=== PATIENT | male | born 1980 | race African-American/Black ===

== ENCOUNTER 2018-10-29 14:28 | Inpatient (IN) | payer OTHER ==
[~2018-10-29] VITALS: Ht 167.6 cm; Wt 91.3 kg
[2018-10-29] MEDS ORDERED: MORPHINE SULFATE 4 MG/1ML SYG ONE ×3 (14:39→22:12)
[2018-10-29] MEDS ORDERED: ONDANSETRON HCL 4 MG/2 ML VIAL ONE (14:39)
[2018-10-29] MEDS ORDERED: KETOROLAC TROMETHAMINE 30MG/ML ONE (15:08)
[2018-10-29 16:28] LABS: BASOPHILS % (AUTO) 0.7 % (0.0-5.0); EOSINOPHILS % (AUTO) 0.6 % (0.0-8.0); HEMATOCRIT 46.1 % (42-54); LYMPHOCYTES % (AUTO) 18.2 % (21.0-51.0); MEAN CORPUSCULAR HEMOGLOBIN 32.1 pg (27.0-33.0); MEAN CORPUSCULAR HGB CONC 33.9 g/dL (32.0-36.0); MEAN CORPUSCULAR VOLUME 94.8 fL (79-99); MONOCYTES % (AUTO) 6.8 % (3.0-13.0); NEUTROPHILS % (AUTO) 73.7 % (40.0-77.0); NUCLEATED RED BLOOD CELLS 0.1 % (0.0-0.19); PLATELET COUNT (AUTO) 246 K/uL (130-400); RED BLOOD CELL COUNT(AUTO) 4.86 MIL/uL (4.50-6.20); RED CELL DISTRIBUTION WIDTH 12.7 % (11.0-15.5); WHITE BLOOD COUNT (AUTO) 10.9 K/uL (4.8-10.8)
[2018-10-29 16:43] LABS: INR 0.95 (0.85-1.15); PARTIAL THROMBOPLASTIN TIME 28.7 SEC (26.3-35.5)
[2018-10-29 17:57] LABS: APPEARANCE,URINE CLEAR (CLEAR); BILIRUBIN,URINE NEGATIVE (NEGATIVE); COLOR,URINE YELLOW (YELLOW); GLUCOSE, URINE (UA) NEGATIVE (NEGATIVE); KETONES,URINE 5 mg/dL (NEGATIVE); LEUKOCYTE ESTERASE ,URINE NEGATIVE (NEGATIVE); NITRATE,URINE NEGATIVE (NEGATIVE); OCCULT BLOOD,URINE SMALL (NEGATIVE); PH,URINE 6.5 (5.0-8.0); PROTEIN,URINE TRACE mg/dL (NEGATIVE); UROBILINOGEN,URINE 0.2 mg/dL (0.2-1.0)
[2018-10-29] MEDS ORDERED: MORPHINE SULFATE 4 MG/1ML SYG IV PRN (18:00)
[2018-10-29] MEDS ORDERED: LACTULOSE 20 GM/30 ML UDCUP PO PRN (18:00)
[2018-10-29] MEDS ORDERED: ONDANSETRON HCL 4 MG/2 ML VIAL IV PRN (18:00)
[2018-10-29] MEDS ORDERED: ACETAMINOPHEN 325 MG TAB PO PRN ×2 (18:00)
[2018-10-29] MEDS ORDERED: MORPHINE SULFATE 2 MG/ML 1ML SYG IV PRN (18:00)
[2018-10-29 18:33] LABS: BACTERIA,URINE Rare /HPF (None Seen); MUCUS,URINE Few LPF (None Seen); RBC,URINE 0-1 /HPF (0-1); SQUAMOUS EPITHELIAL CELL,UR Rare /HPF (0-2); WBC,URINE 0-1 /HPF (0-1)
--- NOTE | 2018-10-29 23:45 | NUR ---
admit PATIENT ARRIVED TO ROOM IN WHEEL CHAIR WITH LEFT ARM IN SPLINT AND SLING. SOME SWELLING NOTED TO LEFT ARM BUT STRONG RADIAL PULSES PRESENT AND PATIENT ABLE TO MOVE ALL DIGITS. PATIENT ORIENTED TO ROOM.
[2018-10-29 23:48] VITALS: BP 138/105
[2018-10-30] VITALS (22 sets, daily range): BP systolic 118–154; BP diastolic 67–101
[2018-10-30 00:30] LABS: ALBUMIN 3.2 g/dL (3.5-5.0); BILIRUBIN,TOTAL 0.5 mg/dL (0.2-1.0); CREATININE 1.4 mg/dL (0.5-1.5); POTASSIUM 3.4 mmol/L (3.5-5.1); TOTAL PROTEIN, SERUM 6.9 g/dL (6.0-8.3)
[2018-10-30] MEDS ORDERED: ABAC1TAB15 PO (00:31)
[2018-10-30] MEDS ORDERED: ALBU8.5H8 IH (00:31)
[2018-10-30] MEDS: SODIUM CHLORIDE 0.9% 1000ML 1,000 ML IV SCH ×5 (00:34→23:37)
[2018-10-30] MEDS ORDERED: KETOROLAC TROMETHAMINE 30MG/ML ONE (00:50)
--- NOTE | 2018-10-30 02:00 | NUR ---
NUMBNESS PATIENT COMPLAINS OF NUMBNESS AND SWELLING TO LEFT ARM. DR STANLEY PAGED TO INFORM OF PATIENT STATUS. Sharlene CHERRY COMBINED RAIL OPERATOR NOTIFIED [place] TO FOLLOW ORTHOPEDIC RECOMMENDATIONS AND CHECK NEUROVASCULAR SIGNS.
[2018-10-30 04:35] LABS: ALBUMIN 3.3 g/dL (3.5-5.0); BILIRUBIN,TOTAL 0.7 mg/dL (0.2-1.0); CREATININE 1.4 mg/dL (0.5-1.5); POTASSIUM 3.9 mmol/L (3.5-5.1)
[2018-10-30 04:39] LABS: HEMATOCRIT 43.7 % (42-54); MEAN CORPUSCULAR HEMOGLOBIN 32.7 pg (27.0-33.0); MEAN CORPUSCULAR VOLUME 96.1 fL (79-99); PLATELET COUNT (AUTO) 212 K/uL (130-400); RED BLOOD CELL COUNT(AUTO) 4.55 MIL/uL (4.50-6.20); WHITE BLOOD COUNT (AUTO) 10.7 K/uL (4.8-10.8)
[2018-10-30] MEDS: KETOROLAC TROMETHAMINE 15MG/ML IM PRN ×2 (08:51→15:05)
[2018-10-30] MEDS ORDERED: CEFAZOLIN SODIUM 1 GM VIAL IVP PRN (09:45)
[2018-10-30] MEDS ORDERED: HYDROMORPHONE HCL 2 MG/ML VIAL IVP PRN (09:45)
[2018-10-30] MEDS ORDERED: LACTATED RINGERS 1000ML 1,000 ML IV ONE (09:55)
[2018-10-30] MEDS ORDERED: PROPOFOL 10 MG/ML 20ML VIAL IV ONE (10:08)
[2018-10-30] MEDS ORDERED: FENTANYL CITRATE PF 50 MCG/1 ML 2ML VIAL ONE ×4 (10:08→12:47)
[2018-10-30] MEDS ORDERED: LIDOCAINE HCL MPF 1% 5ML VIAL ONE (10:08)
--- NOTE | 2018-10-30 10:30 | NUR ---
DC Plan Attempted to meet with patient to discuss dc plan. Patient currently not in room. CM to revisit. CD
[2018-10-30] MEDS ORDERED: ONDANSETRON HCL 4 MG/2 ML VIAL ONE (12:09)
[2018-10-30] MEDS ORDERED: MEPERIDINE-PF 25 MG/ML SYG ONE (12:33)
[2018-10-30] MEDS ORDERED: METOCLOPRAMIDE 10 MG/2 ML VIAL ONE (12:55)
[2018-10-30] MEDS ORDERED: LIDOCAINE HCL-MPF 1% 2ML VIAL IVP PRN (14:30)
[2018-10-30] MEDS ORDERED: DiphenhydrAMINE HCL 50 MG/ML VIAL IVP PRN (14:30)
[2018-10-30] MEDS ORDERED: CALCIUM CARBONATE 500 MG TABLET PO PRN (14:30)
[2018-10-30] MEDS ORDERED: TRAMADOL HCL 50 MG TABLET PO PRN (14:30)
[2018-10-30] MEDS ORDERED: POTASSIUM CHLORIDE 20MEQ/100ML 100 ML IV PRN (14:30)
[2018-10-30] MEDS ORDERED: OXYCODONE HCL 5 MG TAB PO PRN (14:30)
[2018-10-30] MEDS ORDERED: DIPHENHYDRAMINE HCL 25 MG CAPSULE PO PRN (14:30)
[2018-10-30] MEDS ORDERED: POTASSIUM CHLORIDE 20 MEQ ERTAB PO PRN (14:30)
[2018-10-30] MEDS ORDERED: FERROUS FUMARATE 324 MG TABLET PO PRN (14:30)
[2018-10-30] MEDS ORDERED: POTASSIUM CHLORIDE 10% ELIXIR 20 MEQ/15 ML UDCUP PO PRN (14:30)
[2018-10-30] MEDS: ACETAMINOPHEN EXTRA STRENGTH 500 MG TABLET PO SCH ×2 (15:05→20:28)
[2018-10-30] MEDS: HYDROCODONE/ACETAMINOPHEN 5/325 MG TAB PO PRN ×2 (16:24→20:28)
[2018-10-30] MEDS: CEFAZOLIN 3GM /D5W 100ML 100 ML IV SCH (20:28)
[2018-10-31] MEDS ORDERED: HYDROMORPHONE HCL 2 MG/ML VIAL ONE (00:02)
[2018-10-31] MEDS: CEFAZOLIN 3GM /D5W 100ML 100 ML IV SCH (03:45)
[2018-10-31] MEDS ORDERED: HYDROMORPHONE 1 MG/1 ML AMP ONE (03:47)
[2018-10-31] MEDS: ACETAMINOPHEN EXTRA STRENGTH 500 MG TABLET PO SCH ×3 (03:50→22:28)
[2018-10-31 04:00] VITALS: BP 148/84
[2018-10-31 05:04] LABS: BASOPHILS % (AUTO) 0.6 % (0.0-5.0); EOSINOPHILS % (AUTO) 2.3 % (0.0-8.0); HEMATOCRIT 39.4 % (42-54); LYMPHOCYTES % (AUTO) 29.4 % (21.0-51.0); MEAN CORPUSCULAR HEMOGLOBIN 31.9 pg (27.0-33.0); MEAN CORPUSCULAR HGB CONC 33.6 g/dL (32.0-36.0); MEAN CORPUSCULAR VOLUME 95.1 fL (79-99); MONOCYTES % (AUTO) 10.8 % (3.0-13.0); NEUTROPHILS % (AUTO) 56.9 % (40.0-77.0); NUCLEATED RED BLOOD CELLS 0.1 % (0.0-0.19); PLATELET COUNT (AUTO) 222 K/uL (130-400); RED BLOOD CELL COUNT(AUTO) 4.14 MIL/uL (4.50-6.20); RED CELL DISTRIBUTION WIDTH 12.8 % (11.0-15.5)
[2018-10-31 05:14] LABS: INR 0.96 (0.85-1.15); PROTHROMBIN TIME 10.1 SEC (9.6-11.6)
[2018-10-31 05:22] LABS: CREATININE 1.3 mg/dL (0.5-1.5); POTASSIUM 3.6 mmol/L (3.5-5.1)
[2018-10-31 08:00] VITALS: BP 167/93
[2018-10-31] MEDS: POLYETHYLENE GLYCOL 3350 17 GM POWD.PACK PO SCH (08:57)
[2018-10-31 11:00] VITALS: BP 171/95
[2018-10-31] MEDS: PSYLLIUM SEED 1 EACH PACKET PO SCH (11:54)
[2018-10-31] MEDS: HYDRALAZINE HCL 20 MG/ML VIAL IV PRN (11:55)
[2018-10-31] MEDS: SODIUM CHLORIDE 0.9% 1000ML 1,000 ML IV SCH ×2 (12:02→15:45)
[2018-10-31] MEDS: HYDROMORPHONE HCL 2 MG/ML VIAL IVP PRN ×3 (13:13→21:54)
--- NOTE | 2018-10-31 13:57 | NUR ---
DC PLAN VISITED WITH PATIENT. PATIENT LIVES ALONE. INDEPENDENT ABLE TO PERFORM ADL'S. PATIENT HAS NO SERVICES OR DME'S. FEELS SAFE TO RETURN HOME. RECEIVED PACKET FOR MD TO SIGN. EXPLAINED TO PATIENT THAT TYPICALLY MD IN HOSPITAL DOES NOT SIGN INFORMATION. THEY SEND PATIENT TO [facility] TO FILL PAPERWORK. SINCE IT ASK ABOUT WHEN OKAY TO RETURN TO WORK. PER PATIENT IT IS TO BE FILLED HERE. LEFT FLAGGED IN CHART. LET NURSE KNOW TO SEE IF MD WILL SIGN FORMS. Addendum: 10/31/18 at 1400 by MARGE MARI RN CM Amended: Links added.
[2018-10-31 16:00] VITALS: BP 181/89
[2018-10-31 19:30] VITALS: BP 138/88
[2018-10-31 23:32] VITALS: BP 155/84
[2018-11-01] MEDS: HYDROMORPHONE HCL 2 MG/ML VIAL IVP PRN ×5 (01:24→20:47)
[2018-11-01 04:00] VITALS: BP 148/93
[2018-11-01 04:28] LABS: BASOPHILS % (AUTO) 0.8 % (0.0-5.0); EOSINOPHILS % (AUTO) 1.5 % (0.0-8.0); HEMATOCRIT 42.4 % (42-54); LYMPHOCYTES % (AUTO) 26.1 % (21.0-51.0); MEAN CORPUSCULAR HEMOGLOBIN 32.8 pg (27.0-33.0); MEAN CORPUSCULAR HGB CONC 34.5 g/dL (32.0-36.0); MEAN CORPUSCULAR VOLUME 95.2 fL (79-99); MONOCYTES % (AUTO) 11.7 % (3.0-13.0); NEUTROPHILS % (AUTO) 59.9 % (40.0-77.0); PLATELET COUNT (AUTO) 217 K/uL (130-400); RED BLOOD CELL COUNT(AUTO) 4.45 MIL/uL (4.50-6.20); WHITE BLOOD COUNT (AUTO) 10.2 K/uL (4.8-10.8)
[2018-11-01 04:33] LABS: INR 0.97 (0.85-1.15); PROTHROMBIN TIME 10.2 SEC (9.6-11.6)
[2018-11-01 04:50] LABS: CREATININE 1.4 mg/dL (0.5-1.5); POTASSIUM 3.7 mmol/L (3.5-5.1)
[2018-11-01] MEDS: SODIUM CHLORIDE 0.9% 1000ML 1,000 ML IV SCH (05:05)
[2018-11-01] MEDS: ACETAMINOPHEN EXTRA STRENGTH 500 MG TABLET PO SCH ×3 (05:09→23:30)
[2018-11-01] MEDS: HYDROCODONE/ACETAMINOPHEN 5/325 MG TAB PO PRN ×2 (07:50→13:05)
[2018-11-01] MEDS: POLYETHYLENE GLYCOL 3350 17 GM POWD.PACK PO SCH (07:51)
[2018-11-01 08:00] VITALS: BP 146/96
[2018-11-01 11:00] VITALS: BP 148/92
[2018-11-01] MEDS: PSYLLIUM SEED 1 EACH PACKET PO SCH (13:00)
[2018-11-01] MEDS ORDERED: BISACODYL 5 MG TABLET.DR PO PRN (14:30)
--- NOTE | 2018-11-01 15:00 | NUR ---
DRESSING CHANGE TO LEFT ARM INCISION PER MD ORDERS. DORSAL INCISION 8CM X 2.27 CM X 0.5 CM, BEEFY RED TISSUE. MODERATE AMOUNT OF BLEEDING NOTED. PACKED WITH STERILE WET TO DRY 4X4 ORDERED. COVERED WITH KERLIX, REPLACED SPLINT, SECURED WITH JOHNNIE WRAP. EXTREMITY ELEVATED ON 2 PILLOWS. PT TOLERATED WELL.
[2018-11-01 16:00] VITALS: BP 145/94
[2018-11-01 19:06] VITALS: BP 157/99
[2018-11-01 23:34] VITALS: BP 146/94
[2018-11-02 03:40] VITALS: BP 152/98
[2018-11-02 04:08] LABS: BASOPHILS % (AUTO) 0.7 % (0.0-5.0); EOSINOPHILS % (AUTO) 2.5 % (0.0-8.0); LYMPHOCYTES % (AUTO) 34.2 % (21.0-51.0); MEAN CORPUSCULAR HEMOGLOBIN 32.2 pg (27.0-33.0); MEAN CORPUSCULAR HGB CONC 33.6 g/dL (32.0-36.0); MEAN CORPUSCULAR VOLUME 95.7 fL (79-99); MONOCYTES % (AUTO) 11.3 % (3.0-13.0); NEUTROPHILS % (AUTO) 51.3 % (40.0-77.0); PLATELET COUNT (AUTO) 260 K/uL (130-400); RED BLOOD CELL COUNT(AUTO) 4.49 MIL/uL (4.50-6.20); RED CELL DISTRIBUTION WIDTH 13.1 % (11.0-15.5); WHITE BLOOD COUNT (AUTO) 10.7 K/uL (4.8-10.8)
[2018-11-02] MEDS: HYDRALAZINE HCL 20 MG/ML VIAL IV PRN (04:12)
[2018-11-02 04:19] LABS: INR 0.94 (0.85-1.15); PROTHROMBIN TIME 9.9 SEC (9.6-11.6)
[2018-11-02 04:44] LABS: CREATININE 1.2 mg/dL (0.5-1.5)
[2018-11-02] MEDS: ACETAMINOPHEN EXTRA STRENGTH 500 MG TABLET PO SCH ×3 (06:42→21:33)
[2018-11-02] MEDS: SODIUM CHLORIDE 0.9% 1000ML 1,000 ML IV SCH ×3 (06:50→16:48)
[2018-11-02 08:00] VITALS: BP 145/89
[2018-11-02] MEDS: POLYETHYLENE GLYCOL 3350 17 GM POWD.PACK PO SCH (08:56)
[2018-11-02] MEDS ORDERED: KETOROLAC TROMETHAMINE 15MG/ML IV PRN (09:15)
[2018-11-02] MEDS ORDERED: HYDROCODONE/ACETAMINOPHEN 5/325 MG TAB PO PRN (11:15)
[2018-11-02 11:53] VITALS: BP 143/97
[2018-11-02] MEDS: PSYLLIUM SEED 1 EACH PACKET PO SCH (11:59)
[2018-11-02] MEDS: HYDROCODONE/ACETAMINOPHEN 5/325 MG TAB PO PRN (12:00)
[2018-11-02] MEDS ORDERED: BISACODYL 10 MG SUPP.RECT RC PRN (14:30)
[2018-11-02 16:00] VITALS: BP 144/91
[2018-11-02] MEDS ORDERED: KETOROLAC TROMETHAMINE 15MG/ML IM PRN (16:00)
[2018-11-02] MEDS: HYDROMORPHONE HCL 2 MG/ML VIAL IVP PRN (16:41)
--- NOTE | 2018-11-02 17:45 | NUR ---
Pt's diastolic blood pressures have been in 90's this shift, but he refuses hydralazine. Stated he feels "terrible: after administration on hydralazine this morning and he will "never do that again." Attempted to contact LOLA Jones to report, no call back yet.
--- NOTE | 2018-11-02 17:45 | NUR ---
STERILE DRESSING CHANGE TO LEFT DORSAL INCISION WITH WET TO DRY PACKING. BEEFY RED GRANULATION NOTED; MODERATE AMT BLEEDING. SECURED WITH KERLIX, SPLINT, AND JOHNNIE WRAP AFTER LIGHT WET TO DRY PACKING. PT TOLERATED WELL.
[2018-11-02 19:30] VITALS: BP 163/95
--- NOTE | 2018-11-02 20:07 | NUR ---
NOTE CONTACTED Juan Miguel MIJARES REGARDING BP 163/95 TONIGHT. ALSO NOTIFIED HIM THAT I WAS INFORMED IN SHIFT REPORT PATIENT DOES NOT WANT TO RECEIVE HYDRALAZINE ANYMORE DUE TO HOW IT MADE HIM FEEL. Juan Miguel REGAN SAID HE WOULD GO TALK TO HIM AND PLACE ORDERS.
--- NOTE | 2018-11-02 21:30 | NUR ---
NOTE ASKED HIM IF Juan Miguel MIJARES SPOKE TO HIM REGARDING NEW MEDICATIONS. HE SAID YES. BROUGHT CLONIDINE AND EXPLAINED PURPOSE TO PATIENT. HE REQUESTED INFORMATION AND SIDE EFFECTS. PRINTED INFORMATION SHEET FOR CLONIDINE AND ALSO FOR [place] FOR HIM TO REVIEW. UPON REVIEWING THE INFORMATION HE SAID HE WAS NOT GOING TO TAKE THE MEDICATION. STATED "I HAVE NEVER HAD A PROBLEM WITH BLOOD PRESSURE AND I'M NOT GOING TO TAKE MEDICATION FOR JUST ONE OCCURRENCE".
[2018-11-02] MEDS: CLONIDINE HCL 0.1 MG TABLET PO PRN (21:37)
[2018-11-02 23:26] VITALS: BP 148/96
[2018-11-03 03:00] VITALS: BP 137/93
[2018-11-03] MEDS: SODIUM CHLORIDE 0.9% 1000ML 1,000 ML IV SCH ×3 (03:06→22:56)
[2018-11-03] MEDS: HYDROMORPHONE HCL 2 MG/ML VIAL IVP PRN ×4 (03:14→23:26)
[2018-11-03 04:30] LABS: BASOPHILS % (AUTO) 0.8 % (0.0-5.0); EOSINOPHILS % (AUTO) 3.8 % (0.0-8.0); HEMATOCRIT 39.1 % (42-54); LYMPHOCYTES % (AUTO) 36.8 % (21.0-51.0); MEAN CORPUSCULAR HEMOGLOBIN 32.8 pg (27.0-33.0); MEAN CORPUSCULAR HGB CONC 34.3 g/dL (32.0-36.0); MEAN CORPUSCULAR VOLUME 95.7 fL (79-99); MONOCYTES % (AUTO) 9.8 % (3.0-13.0); NEUTROPHILS % (AUTO) 48.8 % (40.0-77.0); PLATELET COUNT (AUTO) 226 K/uL (130-400); RED BLOOD CELL COUNT(AUTO) 4.09 MIL/uL (4.50-6.20); RED CELL DISTRIBUTION WIDTH 12.7 % (11.0-15.5); WHITE BLOOD COUNT (AUTO) 8.3 K/uL (4.8-10.8)
[2018-11-03] MEDS: ACETAMINOPHEN EXTRA STRENGTH 500 MG TABLET PO SCH ×3 (06:52→21:51)
[2018-11-03 08:00] VITALS: BP 144/95
[2018-11-03] MEDS: LOSARTAN 100 MG TABLET PO SCH (09:00)
[2018-11-03] MEDS: POLYETHYLENE GLYCOL 3350 17 GM POWD.PACK PO SCH (09:18)
[2018-11-03] MEDS: PSYLLIUM SEED 1 EACH PACKET PO SCH (11:14)
[2018-11-03 11:43] VITALS: BP 148/92
--- NOTE | 2018-11-03 13:30 | NUR ---
REC'D CALL FROM DR STANLEY STATING THAT HE FEELS TOMORROW (SUNDAY) IS TOO EARLY TO SCHEDULE LEFT ARM WOUND CLOSURE; HE WILL REASSESS PT TOMORROW AND PLAN FOR POSSIBLE SURGERY ON SUNDAY.
--- NOTE | 2018-11-03 14:51 | NUR ---
STERILE DRESSING CHANGE TO LEFT DORSAL INCISION PER MD ORDERS. GOOD GRANULATION NOTED, NO S/S INFECTION. ONLY SMALL AMT BLEEDING. PACKED LIGHTLY WITH WET TO DRY DRESSING. PER DR. STANLEY'S INSTRUCTION, NEW XEROFORM STRIP AND GAUZE PLACED TO LEFT ANTERIOR INCISION TODAY ONLY. SUTURES INTACT, SKIN EDGES WELL APPROXIMATED. NO ACTIVE DRAINAGE. ALL AREAS COVERED WITH 4X4'S AND KERLIX. REPLACED SPLINT AND SECURED WITH JOHNNIE WRAP. PT TOLERATED WELL.
[2018-11-03] MEDS: KETOROLAC TROMETHAMINE 15MG/ML IV PRN (15:05)
[2018-11-03 16:00] VITALS: BP 149/92
[2018-11-03 19:10] VITALS: BP 140/91
[2018-11-03 23:25] VITALS: BP 154/85
[2018-11-04] MEDS: HYDROMORPHONE HCL 2 MG/ML VIAL IVP PRN ×4 (03:33→23:52)
[2018-11-04 03:39] VITALS: BP 141/96
[2018-11-04] MEDS: KETOROLAC TROMETHAMINE 15MG/ML IV PRN (03:44)
[2018-11-04 04:42] LABS: BASOPHILS % (AUTO) 0.7 % (0.0-5.0); EOSINOPHILS % (AUTO) 3.1 % (0.0-8.0); HEMATOCRIT 40.2 % (42-54); LYMPHOCYTES % (AUTO) 34.9 % (21.0-51.0); MEAN CORPUSCULAR HEMOGLOBIN 31.8 pg (27.0-33.0); MEAN CORPUSCULAR HGB CONC 33.3 g/dL (32.0-36.0); MEAN CORPUSCULAR VOLUME 95.4 fL (79-99); MONOCYTES % (AUTO) 9.6 % (3.0-13.0); NEUTROPHILS % (AUTO) 51.7 % (40.0-77.0); PLATELET COUNT (AUTO) 253 K/uL (130-400); RED BLOOD CELL COUNT(AUTO) 4.21 MIL/uL (4.50-6.20); RED CELL DISTRIBUTION WIDTH 12.7 % (11.0-15.5); WHITE BLOOD COUNT (AUTO) 10.1 K/uL (4.8-10.8)
[2018-11-04 05:17] LABS: CREATININE 1.3 mg/dL (0.5-1.5); POTASSIUM 3.9 mmol/L (3.5-5.1)
[2018-11-04] MEDS: ACETAMINOPHEN EXTRA STRENGTH 500 MG TABLET PO SCH ×3 (05:45→22:10)
[2018-11-04 08:00] VITALS: BP 130/91
[2018-11-04] MEDS: POLYETHYLENE GLYCOL 3350 17 GM POWD.PACK PO SCH (08:01)
[2018-11-04] MEDS: LOSARTAN 100 MG TABLET PO SCH ×2 (08:02→08:04)
[2018-11-04] MEDS: HYDROCODONE/ACETAMINOPHEN 5/325 MG TAB PO PRN (08:35)
[2018-11-04] MEDS: SODIUM CHLORIDE 0.9% 1000ML 1,000 ML IV SCH ×2 (09:21→19:52)
[2018-11-04 11:00] VITALS: BP 129/93
[2018-11-04] MEDS: PSYLLIUM SEED 1 EACH PACKET PO SCH (11:41)
[2018-11-04] MEDS: CLONIDINE HCL 0.1 MG TABLET PO PRN (11:42)
[2018-11-04 16:00] VITALS: BP 132/92
--- NOTE | 2018-11-04 16:10 | NUR ---
DRESSING CHANGE DRESSING TO LEFT DORSAL WOUND CHANGED ORDERED. WET TO DRY DRESSING APPLIED. NOTED GRANULATION TO WOUND BED, NO NOTED S/S OF INFECTION. SWELLING DECREASED BUT HAS NOT RESOLVED COMPLETELY. INCISION TO LATERAL WRIST DRY AND INTACT, CESILIA IN PLACE. GAUZE APPLIED, WRAPPED WITH SPLINT AND JOHNNIE WRAP. WILL MONITOR PT CLOSELY.
[2018-11-04 19:05] VITALS: BP 151/97
[2018-11-04 23:12] VITALS: BP 143/90
[2018-11-05] VITALS (25 sets, daily range): BP systolic 107–158; BP diastolic 65–112
[2018-11-05] MEDS: KETOROLAC TROMETHAMINE 15MG/ML IV PRN (01:02)
[2018-11-05 04:38] LABS: HEMATOCRIT 39.9 % (42-54); MEAN CORPUSCULAR HEMOGLOBIN 32.8 pg (27.0-33.0); MEAN CORPUSCULAR HGB CONC 34.5 g/dL (32.0-36.0); MEAN CORPUSCULAR VOLUME 95.3 fL (79-99); PLATELET COUNT (AUTO) 265 K/uL (130-400); RED BLOOD CELL COUNT(AUTO) 4.18 MIL/uL (4.50-6.20); RED CELL DISTRIBUTION WIDTH 12.5 % (11.0-15.5); WHITE BLOOD COUNT (AUTO) 9.4 K/uL (4.8-10.8)
[2018-11-05 04:53] LABS: CREATININE 1.2 mg/dL (0.5-1.5)
[2018-11-05] MEDS: SODIUM CHLORIDE 0.9% 1000ML 1,000 ML IV SCH ×4 (04:54→22:47)
[2018-11-05] MEDS: ACETAMINOPHEN EXTRA STRENGTH 500 MG TABLET PO SCH ×3 (05:57→22:48)
[2018-11-05] MEDS: POLYETHYLENE GLYCOL 3350 17 GM POWD.PACK PO SCH (09:00)
[2018-11-05] MEDS: LOSARTAN 100 MG TABLET PO SCH (09:00)
[2018-11-05] MEDS ORDERED: LACTATED RINGERS 1000ML 1,000 ML IV ONE (09:41)
[2018-11-05] MEDS ORDERED: CEFAZOLIN SODIUM 1 GM VIAL ONE (09:58)
[2018-11-05] MEDS ORDERED: CEFAZOLIN SODIUM 1 GM VIAL IVP PRN (10:00)
[2018-11-05] MEDS ORDERED: FENTANYL CITRATE PF 50 MCG/1 ML 2ML VIAL ONE (10:19)
[2018-11-05] MEDS ORDERED: MIDAZOLAM HCL 1 MG/ML 2ML VIAL ONE (10:19)
[2018-11-05] MEDS ORDERED: LIDOCAINE PF 2% 5ML ABBOJECT ONE (10:22)
[2018-11-05] MEDS ORDERED: PROPOFOL 10 MG/ML 20ML VIAL IV ONE ×2 (10:23→11:10)
[2018-11-05] MEDS ORDERED: ROCURONIUM 10MG/1ML SYR 10 MG/ML ML ONE (10:23)
[2018-11-05] MEDS ORDERED: FENTANYL CITRATE PF 50 MCG/1 ML 5ML AMP IV ONE (10:42)
[2018-11-05] MEDS ORDERED: MEPERIDINE-PF 25 MG/ML SYG ONE (11:43)
[2018-11-05] MEDS: PSYLLIUM SEED 1 EACH PACKET PO SCH (11:58)
[2018-11-05] MEDS: HYDROMORPHONE HCL 2 MG/ML VIAL IVP PRN ×3 (14:56→23:18)
[2018-11-05] MEDS: CLONIDINE HCL 0.1 MG TABLET PO PRN (16:59)
[2018-11-05] MEDS: CEFAZOLIN 3GM /D5W 100ML 100 ML IV SCH (16:59)
[2018-11-05] MEDS: FAMOTIDINE 20MG TAB 20 MG TAB PO SCH ×2 (20:00→20:05)
[2018-11-06] VITALS (7 sets, daily range): BP systolic 119–146; BP diastolic 83–102
[2018-11-06] MEDS: CEFAZOLIN 3GM /D5W 100ML 100 ML IV SCH (00:14)
[2018-11-06] MEDS: HYDROMORPHONE HCL 2 MG/ML VIAL IVP PRN ×2 (03:04→07:45)
[2018-11-06] MEDS: SODIUM CHLORIDE 0.9% 1000ML 1,000 ML IV SCH ×4 (03:04→21:44)
[2018-11-06 04:54] LABS: HEMATOCRIT 36.7 % (42-54); MEAN CORPUSCULAR HEMOGLOBIN 32.2 pg (27.0-33.0); MEAN CORPUSCULAR HGB CONC 34.1 g/dL (32.0-36.0); MEAN CORPUSCULAR VOLUME 94.3 fL (79-99); PLATELET COUNT (AUTO) 272 K/uL (130-400); RED BLOOD CELL COUNT(AUTO) 3.89 MIL/uL (4.50-6.20); RED CELL DISTRIBUTION WIDTH 12.7 % (11.0-15.5); WHITE BLOOD COUNT (AUTO) 9.1 K/uL (4.8-10.8)
[2018-11-06] MEDS: ACETAMINOPHEN EXTRA STRENGTH 500 MG TABLET PO SCH ×3 (04:54→21:22)
[2018-11-06 05:03] LABS: CREATININE 1.2 mg/dL (0.5-1.5); POTASSIUM 3.5 mmol/L (3.5-5.1)
[2018-11-06] MEDS: LOSARTAN 100 MG TABLET PO SCH (07:41)
[2018-11-06] MEDS: FAMOTIDINE 20MG TAB 20 MG TAB PO SCH ×2 (07:41→21:00)
[2018-11-06] MEDS: POLYETHYLENE GLYCOL 3350 17 GM POWD.PACK PO SCH (07:46)
[2018-11-06] MEDS ORDERED: MORPHINE SULFATE 2 MG/ML 1ML SYG IVP PRN (08:15)
[2018-11-06] MEDS ORDERED: TRAMADOL HCL 50 MG TABLET PO PRN (08:15)
[2018-11-06] MEDS: PSYLLIUM SEED 1 EACH PACKET PO SCH (11:55)
--- NOTE | 2018-11-06 16:00 | NUR ---
Dressing to left wrist removed with Dr. Mcneal at bedside. Dorsal arm incision intact, skin edges well approximated, No active drainage noted. New sterile xeroform applied, covered with 4x4, kerlix, splint, and grant wrap. Elevated per Dr. Mcneal's orders.
--- NOTE | 2018-11-06 18:11 | NUR ---
Nutrition Intervention: Nutrition screed based on LOS x 8 days. Pt. admitted with Dx of Displaced comminuted distal radial Fx. Pt. S/P ORIF Left Distal Radius Fx(10/30/18) and S/P closure of Left wrist dorsal wound(11/05/18). Pt. on regular diet with fair p.o. intake, as per pt. Labs reviewed(Alb 3.3). LBM: 11/06/18, per pt. SR-23, left arm incision. BMI: 32.5, Obesity Grade 1. Recommendations: 1) Continue current diet. 2) Rec. 30ml ProMod QD with lunch meal. 3) Continue to monitor pt's nutritional status. 4) Consult RD as nutrition concerns arise. Addendum: 11/06/18 at [address] Amended: Links added.
[2018-11-06] MEDS ORDERED: HYDROCODONE/ACETAMINOPHEN 5/325 MG TAB PO PRN ×2 (19:57→20:00)
[2018-11-06] MEDS: HYDROMORPHONE 1 MG/1 ML AMP IVP PRN (21:22)
[2018-11-07] MEDS: HYDROMORPHONE 1 MG/1 ML AMP IVP PRN (02:39)
[2018-11-07 03:27] VITALS: BP 125/87
[2018-11-07 05:06] LABS: HEMATOCRIT 38.5 % (42-54); MEAN CORPUSCULAR HEMOGLOBIN 32.4 pg (27.0-33.0); MEAN CORPUSCULAR HGB CONC 34.2 g/dL (32.0-36.0); MEAN CORPUSCULAR VOLUME 94.9 fL (79-99); NUCLEATED RED BLOOD CELLS 0.1 % (0.0-0.19); PLATELET COUNT (AUTO) 287 K/uL (130-400); RED BLOOD CELL COUNT(AUTO) 4.06 MIL/uL (4.50-6.20); RED CELL DISTRIBUTION WIDTH 12.6 % (11.0-15.5); WHITE BLOOD COUNT (AUTO) 7.8 K/uL (4.8-10.8)
[2018-11-07 05:29] LABS: CREATININE 1.2 mg/dL (0.5-1.5); POTASSIUM 3.5 mmol/L (3.5-5.1)
[2018-11-07] MEDS: ACETAMINOPHEN EXTRA STRENGTH 500 MG TABLET PO SCH (06:36)
[2018-11-07 07:53] VITALS: BP 141/91
[2018-11-07] MEDS: FAMOTIDINE 20MG TAB 20 MG TAB PO SCH (09:00)
[2018-11-07] MEDS: LOSARTAN 100 MG TABLET PO SCH (09:00)
[2018-11-07] MEDS: POLYETHYLENE GLYCOL 3350 17 GM POWD.PACK PO SCH (09:47)
[2018-11-07 10:45] VITALS: BP 138/93
[2018-11-07] MEDS: PSYLLIUM SEED 1 EACH PACKET PO SCH (12:07)
[2018-11-07 16:00] VITALS: BP 154/90
--- NOTE | 2018-11-07 21:07 | NUR ---
Discharge teaching done on room with pt. Emphasis on Dr. Mcneal's orders for activity, splint/incision care, s/s to monitor for, when to seek emergency care. Pt is to call for follow up appointment with Dr. Mcneal in 2 weeks. New rx for tylenol #3 and surfak given to pt. Discussed purpose, route, frequency, and duration of treatment, as well as side effects and adverse effects. Pt is to keep left arm elevated, no daily dressing changes; keep splint clean and dry. PIV removed from right arm, tip intact, dressed with sterile 2x2 and band aid after hemostasis. Pt wheel[facility] [place] front [facility] by [facility] [place] transport home via private car. Pt in stable condition at time of discharge.
== END 2018-11-07 19:10 | disposition home or self-care (01) | DRG 501 ==
LOC: EDH 14:28 → EEVIPCON 14:29 → EDHIP 14:29 → 4AH 21:00
PROVIDERS: ADMIT Internal Medicine; ATTEND Internal Medicine
PROC: 0J8K0ZZ Division of Left Hand Subcutaneous Tissue and Fascia, Open Approach (ICD-10-PCS; 2018-10-30)
PROC: 0PSJ04Z Reposition Left Radius with Internal Fixation Device, Open Approach (ICD-10-PCS; principal; 2018-10-30 10:18)
PROC: 0JQH0ZZ Repair Left Lower Arm Subcutaneous Tissue and Fascia, Open Approach (ICD-10-PCS; 2018-10-30 10:18)
PROC: 0PSJXZZ Reposition Left Radius, External Approach (ICD-10-PCS; 2018-11-05)
DX: S52.572A Other intraarticular fracture of lower end of left radius, initial encounter for closed fracture (principal); E44.1 Mild protein-calorie malnutrition; M62.82 Rhabdomyolysis; Z21 Asymptomatic human immunodeficiency virus [HIV] infection status; I10 Essential (primary) hypertension; J45.20 Mild intermittent asthma, uncomplicated; K21.9 Gastro-esophageal reflux disease without esophagitis; V89.9XXA Person injured in unspecified vehicle accident, initial encounter; Y93.89 Activity, other specified; Y92.89 Other specified places as the place of occurrence of the external cause; Y99.8 Other external cause status; Z68.32 Body mass index [BMI] 32.0-32.9, adult
CPT/HCPCS: 36415; 71045; 73100; 73110; 80048; 80053; 81001; 82550; 83874; 84484; 85025; 85027; 85610; 85730; 93005; A4218; A4606; G0378; J0360; J0690; J1170; J1885; J2001; J2175; J2250; J2270; J2405; J2704; J2765; J3010; J3490; J7030; J7120